=== PATIENT | female | born 2005 ===

== ENCOUNTER 2024-03-01 14:55 | Inpatient (IN) | payer OTHER ==
[~2024-03-01] VITALS: Ht 160 cm; Wt 96.0 kg
[2024-03-01 16:18] VITALS: BP 130/93
[2024-03-01] MEDS ORDERED: HyDROXyzine HCl 25 MG Tab PO PRN (16:30)
[2024-03-01] MEDS ORDERED: Methocarbamol 500 MG Tab PO PRN (16:40)
[2024-03-01] MEDS ORDERED: Ondansetron 4 MG TAB PO PRN (16:40)
[2024-03-01 16:44] VITALS: BP 130/93
[2024-03-01] MEDS ORDERED: FLU VACC TS2024-25(6MOS UP)/PF 45 MCG/0.5 ML SYRINGE IM PRN (16:55)
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
[2024-03-01] MEDS ORDERED: TraZODone HCl 100 MG Tab PO SCH (21:00)
[2024-03-01] MEDS ORDERED: OLANZapine 10 MG Tab PO SCH (21:00)
[2024-03-01 21:03] VITALS: BP 142/88
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
[2024-03-02 08:05] VITALS: BP 136/83
--- NOTE | 2024-03-02 13:06 | NUR ---
PT COOPERATIVE. NO ANGER MOOD PRESENT THIS DAY. PT IS HAPPY TO BE DISCHARGING TODAY. DISCHARGE INSTRUCTIONS GIVEN, EDUCTION PROVIDED, PRESCRIPTIONS FAXED TO [facility] AND JD OF [facility] BY LAURE[facility]O IN THE PHARMACY. BELONGINGS RETURNED UPON LEAVING. PT A/O X4. AMBULATED TO [facility] WITHOT DIFFICULTY. WILL FOLLOW UP APPOINTMENTS AT [facility] ON &2023.
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
[2024-03-02 20:35] VITALS: BP 128/94
--- NOTE | 2024-03-03 04:23 | NUR ---
SHIFT SUMMARY Improved mood and affect. Keeps to self but participates in tx and is visible in milieu. Denies concerns with meds. Denies needs. No somatic concerns reported tonight. Appropriate behavior. Denies thoughts of harming self.
[2024-03-03 07:41] VITALS: BP 123/86
[2024-03-03] MEDS ORDERED: Ibuprofen 600 MG Tab PO PRN (09:15)
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
[2024-03-03 20:36] VITALS: BP 144/100
--- NOTE | 2024-03-04 04:32 | NUR ---
SHIFT SUMMARY High anxiety r/t having a roommate tonight. Unable to sleep and reported nausea and vomiting with 1 incident of emesis. Says she vomits about once a week. PRN Zofran and hydroxyzine with HS meds. Declined snack d/t nausea. Later reported some relief with Zofran. ZAPATA on day shift resolved. Safety reassurance provided throughout night. When told she needed to try to sleep in her room, pt reluctantly left sensory room, but had difficulty remaining in room. Needs addressed while setting limits. When clinic charge nurse told pt that she would need to wait until AM for shower supplies as showering in the middle of the night would disturb her roommate, pt decided to get in the shower anyway. Mild passive aggressive behaviors continued (e.g. manipulated door to interfere with rounding process), but remained quiet. No SI expressed and no evidence of self-harm behaviors, but continuing to monitor closely.
--- NOTE | 2024-03-04 07:19 | NUR ---
PT IS UP IN THE SENSORY ROOM. SHE HAS BEEN UP AND AWAKE SINCE BEGINNING OF SHIFT AT 0630. SPOKE WITH HER IN THE SENSORY ROOM AND SHE IS STRESSED. REPORT TAKEN THAT SHE WAS AWAKE AND OUT OF BED MOST OF THE NIGHT. SHE SAID SHE IS TIRED AND MISSES HOME. SHE SAYS SHE CAN'T SLEEP AND APPEARS TIRED. ENCOURAGE TO REST IN THE SENSORY ROOM. WILL CONTINUE TO MONITOR
[2024-03-04 08:10] VITALS: BP 129/94
[2024-03-04 08:39] VITALS: BP 129/94
[2024-03-04] MEDS ORDERED: OLANZapine 10 MG Tab PO ONE (10:00)
--- NOTE | 2024-03-04 17:30 | NUR ---
SHIFT SUMMARY: PT DENIES SI AND JUST WANTS TO GO HOME. DR FIELDS TALKED WITH PT AND TOLD HER SHE COULD NOT GO HOME SHE DID NOT SLEEP WELL. SHE THEN TOLD HIM SHE WOULD GO AMA. HE THEN TOLD HER HE WOULD PUT A HOLD ON HER STAY. SHE THEN STARTED CRYING AND SAT DOWN ON THE FLOOR. HE FUTHER EXPLAINED TO HER THAT SHE NEEDS TO BE WELL BEFORE GOING BACK OUT ON HER OWN. SHE ACCEPTED THIS. HE ORDERED A 1 TIME DOSE OF ZYPREXA 10 MG AND WANTED HER TO SLEEP TODAY. SHE DID SLEEP WELL. WHEN SHE GOT UP SHE SPENT TIME IN THE DAY ROOM WITH PEERS. WILL CONTINUE TO MONITOR
[2024-03-04] MEDS ORDERED: OLANZapine 10 MG Tab PO SCH (21:00)
--- NOTE | 2024-03-04 21:00 | NUR ---
PT CAME TO NURSE WINDOW REQUESTING HER BELONGINGS TO DISCHARGE AMA. PT INFORMED OF DISCHARGE PROTOCOLS AND PROCESS. PT VERBALIZED AN UNDERSTANDING AND RETURNED TO ROOM.
--- NOTE | 2024-03-04 21:07 | NUR ---
HS ASSESSMENT PT PLEASANT AND COOPERATIVE WITH CARE AT THIS TIME. PT DENIES SI/HI OR AVH CURRENTLY. PT REPORTS TO HAVING A GOOD DAY TODAY, GOT SOME SLEEP, AND REPORTS FEELING BETTER. 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 PT ACTIVELY PARTICIPATING WITH PEERS IN TV ROOM WATCHING TV. NO CONCERNS AT THIS TIME. WILL CONTINUE TO MONITOR AND PROVIDE SUPPORT.
[2024-03-04 22:17] VITALS: BP 127/89
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
[2024-03-05 08:26] VITALS: BP 138/80
--- NOTE | 2024-03-05 08:26 | NUR ---
PT IS UP AND CONVERSIVE WITH STAFF AND PEERS, PT IS SMILING, MAKING GOOD EYE CONTACT, SHE STATES SHE SLEPT AT LEAST 6 HOURS LAST NIGHT AND FEELS BETTER. PT DENIES ANY SI/HI DENIES A/V/T HALLUCINATIONS, STATES SHE IS HOPEFUL AND THINKING ABOUT GOALS FOR TODAY, STATES SHE WANTS TO STAY WELL HYDRATED TODAY AND HAS A GOAL OF DRINKING FOUR CUPS OF WATER TODAY, ENCOURAGED TO ATTEND GROUPS AND ACTIVITIES, PT REPORTS SHE WILL.
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
--- NOTE | 2024-03-05 18:03 | NUR ---
BLISTERS ON FEET THREE BLISTERS TO PT'S FEET VISUALIZED. THE FIRST BLISTER IS LOCATED ON THE PT'S LEFT HEEL. THE BLISTER IS ABOUT 3-4 CM IN HEIGHT AND WIDTH AND FILLED WITH FLUID. BLISTER HAS BEEN OUTLINED IN MARKER. THE SECOND BLISTER IS ON THE UPPER PART OF THE UNDERSIDE OF THE LEFT FOOT. THE BLISTER IS 4 CM BY 3 CM AND THERE IS NO FLUID PRESENT, BUT THERE IS SOME PEELING SKIN. THE THIRD BLISTER IS ON THE UPPER PART OF THE UNDERSIDE OF THE RIGHT FOOT. THE BLISTER IS ROUGHLY 4 CM BY 3 CM AND THERE IS NO FLUID PRESENT. ALL BLISTERS ARE CURRENTLY OPEN TO AIR. PT REPORTS MINIMAL PAIN AND SAYS THEY DO NOT CURRENTLY IMPEDE HER ABILITY TO WALK.
--- NOTE | 2024-03-05 23:31 | NUR ---
SHIFT SUMMARY ([id number]) In bed all evening. Encouraged pt to leave room for snack and HS med, which she did. Compliant with meds. Ate snack in tv room then went back to bed at end of paulina. Denies new concerns despite decrease in activity today. "Okay" mood, but pt remains guarded.
--- NOTE | 2024-03-06 04:09 | NUR ---
RECEIVED PATIENT FOR CARE AT 2330. PATIENT WAS IN BED RESTING WITH EYES CLOSED THIS SHIFT, RESPIRATIONS CONFIRMED. SHE HAD NO NEEDS OR CONCERNS. SHE HAD NO S/SX SUICIDAL IDEATION OR SELF HARM. CONTINUING TO MONITOR FOR SAFETY WITH Q15 MINUTE CHECKS.
[2024-03-06] MEDS ORDERED: ARIPiprazole 10 MG Tab PO ONE (11:05)
--- NOTE | 2024-03-06 17:30 | NUR ---
SHIFT SUMMARY: PT UP FOR BKFT IN A TIMELY MANNER, INVOLVED IN A COUPLE OF GROUPS TODAY, STS THAT BLISTERS ON HER FEET ARE DOING BETTER AND LESS PAINFUL. SHE DID COMPLAIN OF A HEADACHE 5/10 PAIN THAT IMPROVED WITH ADVIL 650mg TO 3/10 PAIN. PROVIDER STARTED PT ON PO ABILIFY TODAY, SHE HAD HER FIRST DOSE OF ABILIFY EARLY AFTERNOON AND WAS IN AGREEMENT WITH PROVIDER TO START ON THIS THERAPUTIC MEDICATION. PT HAS SPENT A LOT OF HER DAY IN BED WHEN NOT ON THE UNIT, SHE HAS BEEN A&Ox4 ALL THIS SHIFT AND CONTINUES TO CATIA HI/SI/AVH
[2024-03-06] MEDS ORDERED: OLANZapine 10 MG Tab PO SCH (21:00)
[2024-03-06 21:36] VITALS: BP 144/80
--- NOTE | 2024-03-07 04:23 | NUR ---
PATIENT WAS IN THE GROUP ROOM AT THE BEGINNING OF THE SHIFT, WATCHING TELEVISION WITH PEERS. SHE JOINED THE GROUP FOR SNACK TIME AT 1999. SHE WAS PLEASANT AND COOPERATIVE WITH CARES. SHE WAS COMPLIANT WITH EVENING MEDICATIONS. SHE WENT TO BED AFTER FINISHING THE MOVIE,AND WAS NOTED TO BE RESTING QUIETLY WITH EYES CLOSED AND RESPIRATIONS CONFIRMED. SHE HAD NO S/SX SUICIDAL IDEATION OR SELF HARM THIS SHIFT. CONTINUING TO MONITOR FOR SAFETY WITH Q15 CHECKS.
[2024-03-07 07:44] VITALS: BP 139/84
[2024-03-07] MEDS ORDERED: ARIPiprazole 10 MG Tab PO SCH (09:00)
[2024-03-07] MEDS ORDERED: ARIPiprazole 10 MG Tab PO ONE (10:30)
[2024-03-07] MEDS ORDERED: ARIPiprazole 400 MG SUSER.SYR IM SCH (12:00)
--- NOTE | 2024-03-07 17:09 | NUR ---
SHIFT SUMMARY PT A/O X4; PLEASANT AND COOPERATIVE WITH CARE. SHE DENIES SI, HI, OR ANY HALLUCINATIONS. SHE TALKED A BIT MORE TODAY WITH STAFF BUT HER AFFECT REMAINS FAIRLY FLAT. SHE GOES TO GROUP BUT DOES NOT ALWAYS ACTIVELY PARTICIPATE. SHE RECEIVED HER FIRST ABILIFY INJECTION THIS SHIFT. SHE WAS GIVEN ONE PRN DOES OF ATARAX THIS SHIFT WHEN SHE BECAME OVERWHELMED DURING MEAL TIME. SHE CONTINUES TO BY MONITORED VIA Q15 ROUNDS FOR SAFETY.
[2024-03-07 20:38] VITALS: BP 126/85
--- NOTE | 2024-03-08 04:23 | NUR ---
PATIENT WAS IN THE GROUP ROOM WATCHING TELEVISION AT THE BEGINNING OF THE SHIFT. SHE JOINED THE GROUP IN THE DINING ROOM FOR SNACK TIME. SHE DID NOT HAVE ANY BED TIME MEDICATIONS. SHE WAS PLEASANT AND COOPERATIVE, WITH FLAT AFFECT AND TONE. SHE WENT TO BED EARLY AND WAS NOTED TO BE RESTING QUIETLY WITH EYES CLOSED AND RESPIRATIONS CONFIRMED FOR MOST OF THE SHIFT. SHE HAD NO S/SX SUICIDAL IDEATION OR SELF HARM. CONTINUING TO MONITOR FOR SAFETY WITH Q15 MINUTE CHECKS.
[2024-03-08 08:00] VITALS: BP 127/80
[2024-03-08] MEDS ORDERED: ARIPiprazole 10 MG Tab PO SCH (09:00)
--- NOTE | 2024-03-08 10:02 | NUR ---
AM ASSESSMENT PT PLEASANT AND COOPERATIVE THIS MORNING. PT SMILING AND REPORTS FEELING GOOD. PT DECLINES SI/HI AT THIS CURRENT TIME. PT SHOWERED AFTER BREAKFAST AND PARTICIPATING IN MOVEMENT GROUP. PT CONTINUES TO HANG OUT IN GROUP ROOM. NO ACUTE CHANGES AT THIS TIME, WILL CONTINUE TO MONITOR AND PROVIDE SUPPORT NECESSARY.
--- NOTE | 2024-03-08 17:30 | NUR ---
SHIFT SUMMARY PT PLEASANT AND COOPERATIVE THIS SHIFT. PT CONTINUES TO DENY SI/HI AND AVH. PT ACTIVELY PARTICIPATED IN GROUPS AND ACTIVITIES BUT WILL EXIT AND RETURN. NO ACUTE CHANGES THIS SHIFT AND WILL CONTINUE TO MONITOR AND PROVIDE SUPPORT NECESSARY.
[2024-03-08 20:56] VITALS: BP 129/79
--- NOTE | 2024-03-09 04:05 | NUR ---
PATIENT WAS IN THE MILIEU AT THE BEGINNING OF THE SHIFT. SHE WATCHED TELEVISION AND USED THE SENSORY ROOM. SHE JOINED THE GROUP IN THE DINING ROOM FOR SNACK AND FOLLOW UP. SHE STAYED IN THE SENSORY ROOM FOR A TIME, THEN WENT TO BED. SHE WAS IN BED RESTING WITH EYES CLOSED AND RESPIRATIONS CONFIRMED FOR THE REMAINDER OF THE SHIFT. SHE HAS NO EVENING MEDICATIONS. SHE WAS PLEASANT AND COOPERATIVE WITH CARES. SHE HAD NO S/SX SUICIDAL IDEATION OR SELF HARM. CONTINUING TO MONITOR FOR SAFETY WITH Q15 MINUTE CHECKS.
[2024-03-09 07:57] VITALS: BP 134/76
--- NOTE | 2024-03-09 16:28 | NUR ---
SHIFT SUMMARY: PT ALERT, ORIENTED AND COOPERATIVE WITH CARE. DENIES SI, HI AND AVH. COMPLIANT WITH MEDICATIONS AND CARE. ATTENED GROUPS AND MEALS. PRESENT IN THE UNIT AND PARTICIPATED IN MILIEU.
[2024-03-09 21:49] VITALS: BP 132/76
--- NOTE | 2024-03-10 00:23 | NUR ---
SHIFT SUMMARY Pt was asleep in sensory room at start of shift. Woke pt for snack. She vocalized intent to join others in dining room, but went to her own room instead. Reported a headache (received PRN ibuprofen) and took a shower. No new/worsening concerns. Pt remains quiet and mostly keeps to self. Passive participation in activities when alert. Scheduled HS meds were discontinued. Pt was updated. No additional PRN requests. In bed after taking ibuprofen.
[2024-03-10 07:58] VITALS: BP 133/85
--- NOTE | 2024-03-10 17:20 | NUR ---
SHIFT SUMMARY: PT ALERT, ORIENTED AND COOPERATIVE. COMPLIANT WITH MEDICATIONS. DENIES SI, HI AND AVH. STATES THAT SHE IS FEELING MUCH BETTER TODAY. PT VISIBLE ON THE UNIT AND ACTIVE IN MILIEU. SPENT TIME IN THE DAY ROOM COLORING AND WATCHING TV.
--- NOTE | 2024-03-11 04:12 | NUR ---
patient was much more upbeat last evening. Stated no SI,HI or AVH on assessment. Speech more animated and eye contact also improved. Sleeping well so far overnight. will continue close monitoring every 15 minutes for safety.
[2024-03-11 07:17] LABS: CHOL/HDL RATIO 3.9; Cholesterol 139 mg/dL (50-200); HDL Cholesterol 36 mg/dL (>39); LDL/HDL RATIO 1.6; Low Density Lipoprotein Chol 56 mg/dL (0-110); Triglycerides 236 mg/dL (30-140); Very Low Density Lipoprot Chol 47 mg/dL (6-28)
[2024-03-11 07:59] VITALS: BP 129/85
--- NOTE | 2024-03-11 17:31 | NUR ---
SHIFT SUMMARY: PT ALERT, ORIENTED AND COOPERATIVE. DENIES SI, HI AND AVH. PT IN GOOD SPIRITS, STATES THAT SHE IS FEELING MUCH BETTER. ENGAGED IN UNIT MILIEU. SPENT MUCH OF THE DAY COLORING IN THE DAY ROOM. TALKATIVE WITH AND ENGAGED WITH STAFF.
[2024-03-11 21:10] VITALS: BP 136/97
--- NOTE | 2024-03-12 04:25 | NUR ---
Patient is alert and oriented, pleasant and cooperative with care. Mood continues to be brighter, and patient is participating more actively in the milieu with her peers. Denies SI,HI and AVH on assessment. Will continue monitoring every 15 minutes for safety.
[2024-03-12 07:44] VITALS: BP 135/84
--- NOTE | 2024-03-12 17:44 | NUR ---
SHIFT SUMMARY PT AxOx4. PLEASANT AND COOPERATIVE WITH CARE. PT DENIES SI/HI AND AVTH THIS SHIFT. SHE HAS BEEN PARTICIPATING IN TREATMENT INCLUDING TAKING MEDS PRESCRIBED, ATTENDING GROUPS AND MINGLING APPROPRIATELY ON THE UNIT WITH PEERS/STAFF. CURRENT PLAN IS FOR PATIENT TO DISCHARGE TOMORROW TO [facility] IN [facility]. HER ACT TEAM IS WORKING ON ADDITIONAL DC PLANS INCLUDING FOLLOW UP APPOINTMENTS. PT IS CURRENTLY RESTING IN SENSORY ROOM. DENIES ANY NEEDS AT THIS TIME.
--- NOTE | 2024-03-13 04:14 | NUR ---
Patient is alert and oriented and cooperaative with care. She spent much of her time in the TV room before bed and appears to be sleeping much better tonight than the night previous. No HI, SI or AVH on assessment before HS. Denied need for sleep aid when asked. Will continue close observation every 15 minutes for safety.
--- NOTE | 2024-03-13 08:38 | NUR ---
MORNING CHECK IN PT REPORTS BEING THANKFUL FOR FRIENDS AND FEELING HOPEFUL AND DETERMINED. PT DOCUMENTS ON HOPING TO ACCOMPLISH CALLING FAMILY EVERYDAY AND MAKING SURE DISCHARGE PLAN IS IN PLACE. PT DENIES ANY CONCERNS AT THIS TIME.
[2024-03-13] MEDS ORDERED: ABILIFY MAINTE400 M1 IM (12:27)
[2024-03-13] MEDS ORDERED: ABILIFY MYCITE20 M2 PO (12:29)
[2024-03-13] MEDS ORDERED: HYDHCL25 PO (12:30)
--- NOTE | 2024-03-13 13:26 | NUR ---
DISCHARGE NOTE PT AxOx4. PLEASANT AND COOPERATIVE WITH CARE. PT IS DISCHARGING TODAY TO [facility] IN [place]. PT'S TRANPORT WAS ARRANGED FOR 1330 ENVIRONMENTAL HEALTH NURSE TIME. PT IS ALREADY ESTABLISHED WITH ACT TEAM IN [facility], WHO WAS WAS NOTIFIED OF DISCHARGE DATE AND AGREED TO MEET UP WITH PATIENT FOR SAFE HAND OFF WHEN THEY ARRIVE TO RESIDENTIAL. DISCHARGE INSTRUCTIONS DISCUSSED WITH PATIENT INCLUDING FOLLOW UP INFO, DC MEDICATIONS AND PATIENT EDUCATION ON DIAGNOSES AND NEW MEDS. PATIENT VERBALIZED UNDERSTANDING. DENIES SI/HI AND AVTH AT TIME OF DC. PT'S BELONGINGS RETURNED AND SAFELY ESCORTED OUT TO TRANSPORTER.
== END 2024-03-13 13:20 | disposition home or self-care (01) | DRG 885 ==
LOC: BHU 14:55
PROVIDERS: ADMIT Student in an Organized Health Care Education/Training Program
DX: F31.73 Bipolar disorder, in partial remission, most recent episode manic (principal); F31.64 Bipolar disorder, current episode mixed, severe, with psychotic features; Z79.899 Other long term (current) drug therapy; Z56.0 Unemployment, unspecified
CPT/HCPCS: 36415; 80061; 83036; A9270; J0401